=== PATIENT | male | born 1985 | race Caucasian/White ===

== ENCOUNTER 2020-10-05 05:06 | Emergency (ER) | payer OTHER ==
[~2020-10-05] VITALS: Ht 172.7 cm; Wt 68.0 kg
[~2020-10-05 05:06] MED LIST: TRAMADOL 50 MG50 MG PO; VITAMIN D3400 UNIT PO
[2020-10-05] MEDS ORDERED: AUGMENTIN 500-1 EACH PO (05:50)
[2020-10-05 06:06] VITALS: BP 108/68
== END 2020-10-05 06:06 | disposition home or self-care (01) ==
LOC: M.ERS 05:06
DX: S61.432A Puncture wound without foreign body of left hand, initial encounter (principal); W22.8XXA Striking against or struck by other objects, initial encounter; Y93.89 Activity, other specified; Y92.89 Other specified places as the place of occurrence of the external cause; Y99.8 Other external cause status